=== PATIENT | female | born 1965 | race Two or more races ===

== ENCOUNTER 2022-06-30 20:15 | Emergency (ER) | payer SELFPAY ==
[~2022-06-30] VITALS: Ht 172.7 cm; Wt 94.0 kg
[2022-06-30 20:45] VITALS: BP 135/75
== END 2022-07-01 00:07 | disposition home or self-care (01) ==
LOC: ER 20:21
DX: S46.911A Strain of unspecified muscle, fascia and tendon at shoulder and upper arm level, right arm, initial encounter (principal); W22.8XXA Striking against or struck by other objects, initial encounter; Y93.89 Activity, other specified; Y92.89 Other specified places as the place of occurrence of the external cause; Y99.8 Other external cause status
CPT/HCPCS: 73030